=== PATIENT | female | born 1990 | race Caucasian/White ===

== ENCOUNTER 2022-09-25 10:31 | Emergency (ER) | payer OTHER, SELFPAY ==
[2022-09-25 10:42] VITALS: BP 118/82; PULSE 78; RESP 18; TEMP 37; O2SAT 98; BMI 16.6
--- NOTE | 2022-09-25 11:23 | CRLHL7_ITS ---
For Patients: As a result of the Century Cures Act, medical imaging exams and procedure reports are released immediately into your electronic medical record. You may view this report before your referring provider. If you have questions, please contact your health care provider. INDICATION: Right upper quadrant abdomen pain. TECHNIQUE: Ultrasound abdomen limited. Sonographic images of the right upper quadrant were obtained using el-scale and color Doppler images. COMPARISON: None. FINDINGS: Liver: Normal in size and echotexture. No suspicious masses. No intrahepatic biliary dilatation. Gallbladder: No stones or sludge. Normal wall thickness. No pericholecystic fluid. Common bile duct: 3 mm. Pancreas: Unremarkable. Right kidney: Normal in size. Normal echotexture and cortex. No suspicious masses, stones, or hydronephrosis. Vasculature: Proximal abdominal aorta and IVC are unremarkable. IMPRESSION: Unremarkable right upper quadrant ultrasound. Dictated by Nikolas Flores MD @ 09/25/2022 12:47:47 PM (Electronically Signed)
--- NOTE | 2022-09-25 11:28 | ED.ABDPAIN ---
HPI - Abdominal Pain General Chief Complaint: Abdominal Pain Stated Complaint: Side pains Time Seen by Provider: 09/25/22 10:52 History of Present Illness HPI narrative: This 32-year-old female comes in reporting right upper quadrant abdominal pain. This pain began about a month ago and has been worsening here in there since then. She had some fatty type foods yesterday late afternoon and has had persistent pain since then. She states that she did not sleep much last night because of pain in her right upper quadrant. The pain seems to radiate through to her back. She does not report any fevers, nausea, vomiting, or diarrhea. She is otherwise in good health. Related Data Previous Rx's Medication Instructions Recorded ketorolac 10 mg tablet 10 mg PO Q8H 5 days #15 tabs 09/25/22 methylprednisolone 4 mg tablets in See Rx Instructions PO .COMPLEX 09/25/22 a dose pack (Medrol (Philip)) #21 ea ondansetron HCl 4 mg tablet 4 mg PO Q6H #10 tabs 09/25/22 Allergies Allergy/AdvReac Type Severity Reaction Status Date / Time No Known Drug Allergies Allergy Verified 09/25/22 10:42 Review of Systems Status of ROS Reports: 10 or more systems reviewed and unremarkable except as noted in History and below Narrative Constitutional: No fevers, no weight gain or loss. Eyes: No discharge. No vision changes. HENT: No congestion, no sore throat, no ear pain. Cardiovascular: No chest pain, no palpitations. Respiratory: No shortness of breath, no wheezes, no cough. Gastrointestinal: No vomiting, no diarrhea. Right upper quadrant abdominal pain as described above. Genitourinary: No dysuria, no hematuria. Musculoskeletal: Normal range of motion. Skin: No rashes, no pruritis. Neurological: No dizziness, weakness, sensory change, speech change. Endo/Heme/Allergies: No bruising or bleeding. No polydipsia. Pysch: no suicidality, no anxiety, no insomnia. All other systems reviewed and are negative. PFSH PFSH Social History Smoking Status: Current every day smoker What tobacco products do you use: cigarettes Smoking packs per day: 1 Smoking cigarettes per day: 20.0 Years smoked: 14 Smoking pack-years: 14.00 Do you use any of these nicotine containing products: None Second hand tobacco smoke exposure: Yes How often do you have a drink containing alcohol: never How often do you have six or more drinks on one occasion: Never AUDIT-C Alcohol total score: 0 Non-prescribed substance use: marijuana (any form) service: No Exam Narrative: Exam Narrative: Constitutional: Well-developed, well-nourished, no acute distress. HEENT: Normocephalic, atraumatic. Neck: Normal range of motion. Nontender. Supple. Heart: Regular. No murmurs. Normal rate. Intact distal pulses. Lungs: Clear to auscultation. No chest discomfort. No wheezes, rhonchi, or rales. Abdomen: Normal bowel sounds. Tenderness in the right upper quadrant. No rebound tenderness. Genitalia: Deferred. Back: No midline tenderness. Normal range of motion. Extremities: Normal range of motion. No injury. Skin: Intact. No rash. Warm. No erythema or pallor. Neurologic: No altered sensation. No weakness. Alert and oriented. Psychiatric: No suicidality. No anxiety or depression. No insomnia. Nursing notes and vitals signs are reviewed. Const: Vital Signs, click to edit/add: Vital Signs - 24 hr 09/25/22 10:42 Temperature 98.6 F Pulse Rate [Pulse Oximeter] 78 Respiratory Rate 18 Blood Pressure [Ri ght Upper Arm] 118/82 Pulse Oximetry 98 Oxygen Delivery Me thod Room Air Course Vital Signs Vital signs: Initial Vital Signs Temperature 98.6 F 09/25/22 10:42 Temperature Source Temporal Artery Scan 09/25/22 10:42 Pulse Rate 78 09/25/22 10:42 Pulse Rhythm Regular 09/25/22 10:42 Respiratory Rate 18 09/25/22 10:42 Blood Pressure 118/82 09/25/22 10:42 Blood Pressure Mean 94 09/25/22 10:42 Blood Pressure Position Supine 09/25/22 10:42 Pulse Oximetry 98 09/25/22 10:42 Oxygen Delivery Method Room Air 09/25/22 10:42 Vital Signs Temperature 98.6 F 09/25/22 10:42 Pulse Rate 78 09/25/22 10:42 Respiratory Rate 18 09/25/22 10:42 Blood Pressure 118/82 09/25/22 10:42 Pulse Oximetry 98 09/25/22 10:42 Oxygen Delivery Method Room Air 09/25/22 10:42 Temperature 98.6 F 09/25/22 10:42 Pulse Rate 78 09/25/22 10:42 Respiratory Rate 18 09/25/22 10:42 Blood Pressure 118/82 09/25/22 10:42 Pulse Oximetry 98 09/25/22 10:42 Oxygen Delivery Method Room Air 09/25/22 10:42 MDM - Abdominal Pain MDM Narrative Medical decision making narrative: This patient comes in with right upper quadrant abdominal pain as described above. Her symptoms were rather suspicious for gallbladder disease however her ultrasound was negative. Her gallbladder is somewhat contracted even though she has not had anything to eat since late afternoon yesterday. Seeing that she did not sleep much at all last night due to this pain an IV was then established and CT imaging of the abdomen of and pelvis was obtained. Lab and imaging results all returned negative. She did receive IV doses of Toradol and Zofran which brought complete relief to her symptoms. Currently she is not having any pain. Her symptoms may be due to some musculoskeletal or nerve impingement condition. I did also describe some other causes of this type of pain that we do not have tools to evaluate here in the emergency department. Seeing that her pain is improved and lab and imaging studies along with vital signs are all in normal range she is okay to return home. I did provide prescriptions for Zofran, Toradol, and Medrol Dosepak. Lab Data Labs: Lab Results 09/25/22 Range/Units 12:40 WBC 10.02 (4.50-11.00) K/uL RBC 4.70 (4.00-5.20) m/uL Hgb 14.5 (12.0-16.0) gm/dL Hct 42.2 (33.0-51.0) % MCV 90 (80-100) fL MCH 31 (26-34) pg MCHC 34 (32-36) gm/dL RDW Coeff of Hernan 11.7 (11.5-15.5) % Plt Count 167 (140-440) K/uL Neut % (Auto) 63.4 (42.0-72.0) % Lymph % (Auto) 26.5 (20-44) % Griggs % (Auto) 7.1 (0.0-11.0) % Eos % (Auto) 2.4 (0.0-7.0) % Baso % (Auto) 0.4 (0.0-3.0) % Neut # (Auto) 6.35 (1.7-7.0) K/uL Lymph # (Auto) 2.66 (0.90-2.90) K/uL Griggs # (Auto) 0.70 (0.00-0.90) K/UL Eos # (Auto) 0.24 (0.00-0.50) K/uL Baso # (Auto) 0.04 (0.00-0.30) K/uL Abs Immat Gran (auto) 0.02 (0.00-0.30) K/uL Imm/Tot Granulo (auto) 0.2 % Sodium 138 (135-149) mmol/L Potassium 3.6 (3.6-5.1) mmol/L Chloride 105 (96-114) mmol/L Carbon Dioxide 28 (20-32) mmol/L BUN 12 (5-24) mg/dL Creatinine 0.6 (0.5-1.5) mg/dL Estimated Creat Clear 95.50 Estimated GFR 121 ml/min Glucose 78 (60-115) mg/dL Calcium 9.2 (8.4-10.6) mg/dL Total Bilirubin 0.7 (0.1-1.5) mg/dL Direct Bilirubin 0.1 (0.0-0.5) mg/dL AST 22 (12-35) U/L ALT 16 (4-35) U/L Alkaline Phosphatase 48 (40-150) U/L Total Protein 6.9 (6.0-8.3) g/dL Albumin 4.4 (3.3-5.0) g/dL Lipase 74 (23-300) U/L Imaging Data CT scan - abdomen: Radiologist's impression: No etiology identified for patient`s abdominal pain. Discharge Plan Discharge Clinical Impression: Abdominal pain Patient Disposition: Home, Self-Care Condition: Improved Additional Instructions: Take medication as needed and directed. Follow up with MD or return if symptoms are persistent or worsening. Prescriptions: New ondansetron HCl 4 mg tablet 4 mg PO Q6H Qty: 10 0RF ketorolac 10 mg tablet 10 mg PO Q8H 5 Days Qty: 15 0RF methylprednisolone [Medrol (Philip)] 4 mg tablets,dose pack See Rx Instructions .ROUTE .COMPLEX Qty: 21 0RF Rx Instructions: orally per package directions Follow Up/Referrals: Provider,Not a Local [Primary Care Provider] - Stand Alone Forms: [employer] Info Instructions
--- NOTE | 2022-09-25 12:24 | CRLHL7_ITS ---
For Patients: As a result of the Century Cures Act, medical imaging exams and procedure reports are released immediately into your electronic medical record. You may view this report before your referring provider. If you have questions, please contact your health care provider. Indication: Right upper quadrant pain Technique: CT abdomen and pelvis with IV contrast Please note that all CT scans at this facility use dose modulation, iterative reconstruction, and/or weight-based dosing when appropriate to reduce radiation dose to as low as reasonably achievable. Comparison: None Findings: Lung bases are clear. Normal heart size. No pericardial effusion. Normal liver size and contour. Subcentimeter low-attenuation hepatic lesions too small to characterize. Portal veins appear patent. Hepatic veins are under opacified. Gallbladder decompressed. No biliary dilatation. Nonobstructing renal calculi. No hydronephrosis. No urolithiasis. Adrenal glands, spleen, pancreas, stomach and duodenum are unremarkable. Vessels and lymph nodes unremarkable. Uterus and bladder are unremarkable for age. Right corpus luteal cyst. Trace physiologic free fluid within pelvis. The appendix is located within the right upper quadrant and appears normal (series 2, image 77). There is no bowel obstruction or bowel wall thickening. No retroperitoneal abnormality. No body wall abnormality. No acute or aggressive osseous lesion. Impression: No etiology identified for patient`s abdominal pain. Please note that all CT scans at this facility use dose modulation, iterative reconstruction, and/or weight-based dosing when appropriate to reduce radiation dose to as low as reasonably achievable. Dictated by Tyler Salazar MD @ 09/25/2022 1:07:33 PM (Electronically Signed)
[2022-09-25] MEDS: ONDANSETRON 2 MG/ML inj 4 MG IVP (12:40)
[2022-09-25] MEDS: KETOROLAC 15 MG/ML inj IVP (12:40)
[2022-09-25 12:48] LABS: Basophils Absolute Auto 0.04 K/uL (0.00-0.30); Basophils Percent Auto 0.4 % (0.0-3.0); Eosinophils Absolute Auto 0.24 K/uL (0.00-0.50); Eosinophils Percent Auto 2.4 % (0.0-7.0); Hematocrit 42.2 % (33.0-51.0); Hemoglobin* 14.5 gm/dL (12.0-16.0); Immature Granulocytes Abs Auto 0.02 K/uL (0.00-0.30); Immature Granulocytes Pct Auto 0.2 %; Lymphocytes Absolute Auto 2.66 K/uL (0.90-2.90); Lymphocytes Percent Auto 26.5 % (20-44); Mean Corpuscular HGB Conc 34 gm/dL (32-36); Mean Corpuscular Hemoglobin 31 pg (26-34); Mean Corpuscular Volume 90 fL (80-100); Monocytes Percent Auto 7.1 % (0.0-11.0); Neutrophils Absolute Auto 6.35 K/uL (1.7-7.0); Neutrophils Percent Auto 63.4 % (42.0-72.0); Platelet Count* 167 K/uL (140-440); RDW Coefficient of Variation % 11.7 % (11.5-15.5); White Blood Count* 10.02 K/uL (4.50-11.00)
[2022-09-25] MEDS: 0.9 % SODIUM CHLORIDE 500 ML 500 ML IV (12:50)
[2022-09-25 12:51] VITALS: BP 114/75; PULSE 68; RESP 12; O2SAT 98
[2022-09-25 12:51] LABS: Slide Review Reflex No
[2022-09-25 13:01] VITALS: BP 102/73; PULSE 63; RESP 14; O2SAT 99
[2022-09-25 13:06] LABS: Chloride* 105 mmol/L (96-114)
[2022-09-25 13:07] LABS: Potassium* 3.6 mmol/L (3.6-5.1); Sodium* 138 mmol/L (135-149)
[2022-09-25 13:08] LABS: Albumin* 4.4 g/dL (3.3-5.0)
[2022-09-25 13:09] LABS: Creatinine* 0.6 mg/dL (0.5-1.5); Estimated Glomerular Filt Rate 121 ml/min
[2022-09-25 13:10] LABS: Bilirubin Direct* 0.1 mg/dL (0.0-0.5); Bilirubin Total* 0.7 mg/dL (0.1-1.5); Blood Urea Nitrogen* 12 mg/dL (5-24); Calcium* 9.2 mg/dL (8.4-10.6); Carbon Dioxide* 28 mmol/L (20-32); Glucose* 78 mg/dL (60-115); Total Protein* 6.9 g/dL (6.0-8.3)
[2022-09-25 13:11] LABS: Alanine Aminotransferase* 16 U/L (4-35); Alkaline Phosphatase* 48 U/L (40-150); Aspartate Amino Transferase* 22 U/L (12-35); Lipase* 74 U/L (23-300)
[2022-09-25 13:33] VITALS: BP 113/74; PULSE 66; RESP 14; O2SAT 99
== END 2022-09-25 13:49 | disposition home or self-care (01) ==
PROVIDERS: Emergency Provider Emergency Medicine Emergency Medical Services
DX: R10.11 Right upper quadrant pain (principal)
CPT/HCPCS: 36415; 74177; 76705; 80048; 80076; 83690; 85025; 96374; 96375; 99284; J1885; J2405; J7120; Q9967